=== PATIENT | female | born 2000 | race Caucasian/White ===

== ENCOUNTER 2023-04-12 06:58 | Outpatient (CLI) | payer BC | END 2023-04-12 06:59 | disposition home or self-care (01) | LOC: BICULT 06:58 | PROVIDERS: ATTEND Nurse Practitioner Family | DX: E04.9 Nontoxic goiter, unspecified (principal); D64.9 Anemia, unspecified; R63.4 Abnormal weight loss; R23.3 Spontaneous ecchymoses; R19.6 Halitosis; R20.2 Paresthesia of skin; R79.89 Other specified abnormal findings of blood chemistry | CPT/HCPCS: 76536 ==